=== PATIENT | male | born 1955 | race Caucasian/White ===

== ENCOUNTER → 2019-02-26 | Outpatient (CLI) | payer OTHER | LOC: BHFA 13:30 | PROVIDERS: ATTEND Internal Medicine Cardiovascular Disease | DX: I63.9 Cerebral infarction, unspecified (principal) | CPT/HCPCS: 78452; 93017; A9500; J2785 ==

== ENCOUNTER → 2019-04-08 | Outpatient (CLI) | payer OTHER | LOC: FIMAGING 11:09 ==